=== PATIENT | male | born 1995 | race Caucasian/White ===

== ENCOUNTER 2021-06-12 20:04 | Emergency (ER) | payer OTHER, MEDICAID, SELFPAY ==
[2021-06-12 20:14] VITALS: BMI 22.2
--- NOTE | 2021-06-12 20:22 | CM.SWNOTE ---
Addendum entered by Julisa Holden 06/12/21 20:30: Patient presents without eye contact and possibly responding to internal stimuli. Patient's family reported to EMS that patient was outside in the rain with belief that he was being crucified. CRISTOPHER Pineda Original Note: ACCOUNT MANAGER SALES REPRESENTATIVE Assessment Note Patient presents to ED via EMS due to family's concern for patient's hallucinations. Patient is 25 y/o male with hx of Bipolar. Patient presents mute and not responding to questions. Patient presents with limited movements and limited ability to follow directions. Patient does not present as alert or oriented. Per EMS, patient endorsed I want to go back to [facility]. Patient's family endorsed that patient seems worse than before. It was reported that patient has not been taking his medication for the last 3 months. He is prescribed Risparidone and [place]. It is reported that patient had an inpatient hospital stay at [facility] in March 2021. It took patient 10 minutes to agree to sit on the bed. Patient presents with one leg and a prosthetic leg. ACCOUNT MANAGER SALES REPRESENTATIVE not able to conduct full assessment of patient due to his non responsiveness to all or any questions. It is the opinion of this ACCOUNT MANAGER SALES REPRESENTATIVE that patient is gravely disabled and not a good tyler voluntary inpatient patient. It is the opinion of this ACCOUNT MANAGER SALES REPRESENTATIVE that a DCR should be dispatched to assess patient for ROMULO placement. Plan: Patient to be medically assessed and when medically clear, ED team to dispatch DCR. CRISTOPHER Pineda
--- NOTE | 2021-06-12 20:28 | PC.NURSE ---
patient is currently sitting in a chair.
--- NOTE | 2021-06-12 20:46 | PC.NURSE ---
patient was taking on and off his shirt. seems annoyed and wanting to leave.
[2021-06-12 20:49] VITALS: BP 134/80; PULSE 76; RESP 16; O2SAT 99
[2021-06-12 21:01] LABS: Add Manual Diff / Slide Review NO; Basophils Absolute Auto 100 /uL (0-100); Basophils Percent Auto 0.6 % (0-2); Eosinophils Absolute Auto 100 /uL (0-450); Eosinophils Percent Auto 0.6 % (2-4); Hematocrit 42.4 % (41-53); Hemoglobin 14.3 g/dL (13.5-17.5); Lymphocytes Absolute Auto 2000 /uL (1100-4500); Lymphocytes Percent Auto 10.7 % (25-40); Mean Corpuscular HGB Conc 33.7 % (30-36); Mean Corpuscular Hemoglobin 30.5 PG (26-34); Mean Corpuscular Volume 90.5 fL (80-100); Monocytes Absolute Auto 1400 /uL (0-900); Monocytes Percent Auto 7.3 % (3-14); Neutrophils Absolute Auto 15400 /uL (1500-7000); Neutrophils Percent Auto 80.8 % (50-75); Platelet Count 227 X10^3/uL (150-400); Red Blood Cell Count 4.69 X10^6/uL (4.5-5.9); Red Cell Distribution Width 13.7 % (11.6-14.8); White Blood Cell Count 19.1 X10^3/uL (4.5-11.0)
[2021-06-12 21:13] LABS: Alanine Aminotransferase 35 IU/L (<50); Albumin 4.8 g/dL (3.5-5.0); Albumin Globulin Ratio 1.7 (1.0-2.8); Alkaline Phosphatase 106 U/L (38-126); Aspartate Aminotransferase 51 IU/L (17-59); BUN Creatinine Ratio 30.6 (6-22); Bilirubin Total 0.6 mg/dL (0.2-1.3); Blood Urea Nitrogen 34 mg/dL (9-20); Calcium 9.3 mg/dL (8.4-10.2); Carbon Dioxide 19 mmol/L (22-32); Chloride 102 mmol/L (98-107); Estimated Glomerular Filt Rate > 60.0 mL/min (>60); Ethanol (ETOH) < 10 mg/dL; Globulin 2.8 g/dL (1.7-4.1); Glucose 94 mg/dL (70-100); HEMOLYSIS < 15 (0-50); Potassium 3.5 mmol/L (3.4-5.1); Sodium 135 mmol/L (137-145); Total Protein 7.6 g/dL (6.3-8.2)
--- NOTE | 2021-06-12 21:47 | PC.NURSE ---
patient has fallen asleep. before bed he was offered food and water.
[2021-06-12] MEDS: risperiDONE 1 MG TABLET PO (22:28)
[2021-06-12 22:53] LABS: COVID19 -Nasal RAPID Negative (Negative)
--- NOTE | 2021-06-13 00:13 | ED.PSYCH ---
HPI - Psych <Rik Crenshaw DO - Last Filed: 06/16/21 03:55> General Chief Complaint: Psychiatric Symptoms Stated Complaint: Bipolar Psych Time Seen by Provider: 06/12/21 20:10 History of Present Illness HPI Narrative: 25-year-old patient with history of bipolar disorder presents by EMS for evaluation. There is very little known about this patient as he is not speaking with us at all. Family called EMS because the patient was apparently standing out in the rain suggesting he was about to be georgina if I had. There is report that he has bipolar but has not been taking his medication in some time. We have been unable to reach the family. He does not respond to questioning and does not make eye contact. He was apparently previously at [facility] and at 1 point had mention to the paramedics that he just wants to go there. There is no report of any fever or chills. There is no report from family or medics of any GI or urinary complaints. We have placed calls to family for more information but thus far they have been out of contact Related Data Allergies Allergy/AdvReac Type Severity Reaction Status Date / Time No Known Drug Allergies Allergy Verified 06/13/21 08:31 Review of Systems <Rik Crenshaw DO - Last Filed: 06/16/21 03:55> Review of Systems ROS Unobtainable: Unobtainable due to mental condition Exam <Rik Crenshaw DO - Last Filed: 06/16/21 03:55> Narrative Exam Narrative: GENERAL: [25] year old patient appears stated age. He does not appear to be in any physical pain or demonstrating respiratory distress. He will not speak but is standing, staring at the floor not making eye contact HEAD: Atraumatic. Normocephalic. EYES: Pupils equal round and reactive. Extraocular motions intact. No scleral icterus. No injection or drainage. ENT: Nose without bleeding, purulent drainage. Throat without erythema, tonsillar hypertrophy or exudate. Airway patent. NECK: Trachea midline. Non tender CARDIOVASCULAR: Regular rate and rhythm without murmurs, gallops, or rubs. RESPIRATORY: Clear to auscultation. Breath sounds equal bilaterally. No wheezes, rales, or rhonchi. GASTROINTESTINAL: Abdomen soft, non-tender, nondistended. EXTREMITIES: No edema or joint tenderness. BACK: Nontender without deformity or crepitance. No flank tenderness. NEURO: AOx3. SKIN: Bottom of right foot has an unroofed blister without surrounding erythema or any drainage. Initial Vital Signs Initial Vital Signs: Vital Signs Pulse Rate 76 06/12/21 20:49 Respiratory Rate 16 06/12/21 20:49 Blood Pressure 134/80 06/12/21 20:49 Pulse Oximetry 99 06/12/21 20:49 <Theo Castillo MD - Last Filed: 06/13/21 13:40> Initial Vital Signs Initial Vital Signs: Vital Signs Pulse Rate 76 06/12/21 20:49 Respiratory Rate 16 06/12/21 20:49 Blood Pressure 134/80 06/12/21 20:49 Pulse Oximetry 99 06/12/21 20:49 Course <Rik Crenshaw DO - Last Filed: 06/16/21 03:55> Course Course Narrative: Bipolar patient is clearly gravely disabled. There is no report of suicidal or homicidal ideation. He has been seen and evaluated by [facility] but is unwilling to have any sort of discussion. He is unable to demonstrate any good tyler discussion of voluntary hospitalization. Once medically cleared we will activate the DCR. Orders Ordered: Discontinued Medications Risperidone (Risperidone 1 Mg Tablet) 1 mg PO DAILY ONE Stop: 06/12/21 20:24 Last Admin: 06/12/21 21:42 Dose: Not Given Documented by: IZABELLA Risperidone (Risperidone 1 Mg Tablet) 1 mg PO DAILY [facility] Last Admin: 06/13/21 09:56 Dose: 1 mg Documented by: Admin: 06/12/21 22:28 Dose: 1 mg Documented by: HEATHER Vital Signs Vital signs: Vital Signs - 8 hr 06/12/21 20:49 Pulse Rate 76 Respiratory Rate 16 Blood Pressure 134/80 Pulse Oximetry 99 <Theo Castillo MD - Last Filed: 06/13/21 13:40> Course Additional Information: The patient's workup was done by Dr. Crenshaw, the night doctor. The intent was to have him evaluated for potential admission. He has been off medications for about 3 months, risperidone and lithium. He was at 1 1 observation by 1 of the nurses. He has improved. He is alert and oriented, the blood vague remember of last night. He denies intoxication. He is not using street drugs. Starting him back on the risperidone has helped significantly. He denies suicidal or homicidal ideation. He is discussing plans with his mother for getting home and getting back in treatment. After several hours of observation, he grew tired of his time in the ER. He left on his own will. His desire was to reestablished medications, and have a family member or friend pick him up. It is not clear that that was established.Theo MO 06/13/21 @13:19 Orders Ordered: Discontinued Medications Risperidone (Risperidone 1 Mg Tablet) 1 mg PO DAILY ONE Stop: 06/12/21 20:24 Last Admin: 06/12/21 21:42 Dose: Not Given Documented by: IZABELLA Risperidone (Risperidone 1 Mg Tablet) 1 mg PO DAILY [facility] Last Admin: 06/13/21 09:56 Dose: 1 mg Documented by: Admin: 06/12/21 22:28 Dose: 1 mg Documented by: HEATHER Vital Signs Vital signs: Vital Signs - 8 hr 06/12/21 20:49 Pulse Rate 76 Respiratory Rate 16 Blood Pressure 134/80 Pulse Oximetry 99 MDM - Psych <Rik Crenshaw DO - Last Filed: 06/16/21 03:55> Lab Data Result diagrams: 06/12/21 20:53 06/12/21 20:53 Labs: Lab Results 06/12/21 06/12/21 06/12/21 Range/Units : 20:53 20:53 WBC 19.1 H (4.5-11.0) X10^3/uL RBC 4.69 (4.5-5.9) X10^6/uL Hgb 14.3 (13.5-17.5) g/dL Hct 42.4 (41-53) % MCV 90.5 (80-100) fL MCH 30.5 (26-34) PG MCHC 33.7 (30-36) % RDW 13.7 (11.6-14.8) % Plt Count 227 (150-400) X10^3/uL Neut % (Auto) 80.8 H (50-75) % Lymph % (Auto) 10.7 L (25-40) % Gregory % (Auto) 7.3 (3-14) % Eos % (Auto) 0.6 L (2-4) % Baso % (Auto) 0.6 (0-2) % Neut # (Auto) 55174 H (7630-7659) /uL Lymph # (Auto) 2000 (9201-0392) /uL Gregory # (Auto) 1400 H (0-900) /uL Eos # (Auto) 100 (0-450) /uL Baso # (Auto) 100 (0-100) /uL Sodium 135 L (137-145) mmol/L Potassium 3.5 (3.4-5.1) mmol/L Chloride 102 (98-107) mmol/L Carbon Dioxide 19 L (22-32) mmol/L BUN 34 H (9-20) mg/dL Creatinine 1.11 (0.66-1.25) mg/dL Estimated GFR > 60.0 (>60) mL/min BUN/Creatinine Ratio 30.6 H (6-22) Glucose 94 (70-100) mg/dL Calcium 9.3 (8.4-10.2) mg/dL Total Bilirubin 0.6 (0.2-1.3) mg/dL AST 51 (17-59) IU/L ALT 35 (<50) IU/L Alkaline Phosphatase 106 (38-126) U/L Total Protein 7.6 (6.3-8.2) g/dL Albumin 4.8 (3.5-5.0) g/dL Globulin 2.8 (1.7-4.1) g/dL Albumin/Globulin Ratio 1.7 (1.0-2.8) Urine Color Urine Appearance Urine pH (4.5-8.0) Ur Specific [place] (1.000-1.035) Urine Protein (Negative) Urine Glucose (UA) (Negative) g/dL Urine Ketones (NEGATIVE) Urine Occult Blood (Negative) Urine Nitrate (Negative) Urine Bilirubin (NEGATIVE) Urine Urobilinogen (0.2) E.U./dL Ur Leukocyte Esterase (NEGATIVE) Urine RBC (0-5/HPF) Urine WBC (0-5/HPF) Ur Squamous Epith Cells (0-5/HPF) Amorphous Sediment Urine Bacteria (None) Hyaline Casts (None) Urine Mucus (Negative) Ur Culture Indicated? U Opiates 300ng/mL cut (Negative) Ur Oxycodone Screen (Negative) Urine Methadone Screen (Negative) Ur Barbiturates Screen (Negative) U Tricyclic Antidepress (Negative) Ur Phencyclidine Scrn (Negative) Ur Amphetamines Screen (Negative) U Methamphetamines Scrn (Negative) Ur MDMA Scrn (Ecstasy) (Negative) U Benzodiazepines Scrn (Negative) [place] < 0.2 L (0.6-1.2) mmol/L Urine Cocaine Screen (Negative) U Marijuana (THC) Screen (Negative) Ethyl Alcohol < 10 ( - 10) mg/dL SARS-CoV-2 (PCR) (Negative) 06/12/21 06/13/21 06/13/21 Range/Units 22:26 05:20 05:20 WBC (4.5-11.0) X10^3/uL RBC (4.5-5.9) X10^6/uL Hgb (13.5-17.5) g/dL Hct (41-53) % MCV (80-100) fL MCH (26-34) PG MCHC (30-36) % RDW (11.6-14.8) % Plt Count (150-400) X10^3/uL Neut % (Auto) (50-75) % Lymph % (Auto) (25-40) % Gregory % (Auto) (3-14) % Eos % (Auto) (2-4) % Baso % (Auto) (0-2) % Neut # (Auto) (2513-4222) /uL Lymph # (Auto) (2794-0603) /uL Gregory # (Auto) (0-900) /uL Eos # (Auto) (0-450) /uL Baso # (Auto) (0-100) /uL Sodium (137-145) mmol/L Potassium (3.4-5.1) mmol/L Chloride (98-107) mmol/L Carbon Dioxide (22-32) mmol/L BUN (9-20) mg/dL Creatinine (0.66-1.25) mg/dL Estimated GFR (>60) mL/min BUN/Creatinine Ratio (6-22) Glucose (70-100) mg/dL Calcium (8.4-10.2) mg/dL Total Bilirubin (0.2-1.3) mg/dL AST (17-59) IU/L ALT (<50) IU/L Alkaline Phosphatase (38-126) U/L Total Protein (6.3-8.2) g/dL Albumin (3.5-5.0) g/dL Globulin (1.7-4.1) g/dL Albumin/Globulin Ratio (1.0-2.8) Urine Color Yellow Urine Appearance Clear Urine pH 5.0 (4.5-8.0) Ur Specific [place] 1.025 (1.000-1.035) Urine Protein Negative (Negative) Urine Glucose (UA) Negative (Negative) g/dL Urine Ketones 1+ H (NEGATIVE) Urine Occult Blood Negative (Negative) Urine Nitrate Negative (Negative) Urine Bilirubin Negative (NEGATIVE) Urine Urobilinogen 0.2 (0.2) E.U./dL Ur Leukocyte Esterase Negative (NEGATIVE) Urine RBC 0-1/hpf (0-5/HPF) Urine WBC None seen (0-5/HPF) Ur Squamous Epith Cells 0-1 /hpf (0-5/HPF) Amorphous Sediment 1+ Urine Bacteria Occasional (0-1) (None) Hyaline Casts 0-1/lpf (None) Urine Mucus 1+ H (Negative) Ur Culture Indicated? Cult not indicated U Opiates 300ng/mL cut Negative (Negative) Ur Oxycodone Screen Negative (Negative) Urine Methadone Screen Negative (Negative) Ur Barbiturates Screen Negative (Negative) U Tricyclic Antidepress Negative (Negative) Ur Phencyclidine Scrn Negative (Negative) Ur Amphetamines Screen Negative (Negative) U Methamphetamines Scrn Negative (Negative) Ur MDMA Scrn (Ecstasy) Negative (Negative) U Benzodiazepines Scrn Negative (Negative) [place] (0.6-1.2) mmol/L Urine Cocaine Screen Negative (Negative) U Marijuana (THC) Screen Positive H (Negative) Ethyl Alcohol ( - 10) mg/dL SARS-CoV-2 (PCR) Negative (Negative) <Theo Castillo MD - Last Filed: 06/13/21 13:40> Lab Data Labs: Lab Results 06/12/21 06/12/21 06/12/21 Range/Units 09:21 20:53 20:53 WBC 19.1 H (4.5-11.0) X10^3/uL RBC 4.69 (4.5-5.9) X10^6/uL Hgb 14.3 (13.5-17.5) g/dL Hct 42.4 (41-53) % MCV 90.5 (80-100) fL MCH 30.5 (26-34) PG MCHC 33.7 (30-36) % RDW 13.7 (11.6-14.8) % Plt Count 227 (150-400) X10^3/uL Neut % (Auto) 80.8 H (50-75) % Lymph % (Auto) 10.7 L (25-40) % Gregory % (Auto) 7.3 (3-14) % Eos % (Auto) 0.6 L (2-4) % Baso % (Auto) 0.6 (0-2) % Neut # (Auto) 81626 H (3541-1935) /uL Lymph # (Auto) 2000 (2282-3939) /uL Gregory # (Auto) 1400 H (0-900) /uL Eos # (Auto) 100 (0-450) /uL Baso # (Auto) 100 (0-100) /uL Sodium 135 L (137-145) mmol/L Potassium 3.5 (3.4-5.1) mmol/L Chloride 102 (98-107) mmol/L Carbon Dioxide 19 L (22-32) mmol/L BUN 34 H (9-20) mg/dL Creatinine 1.11 (0.66-1.25) mg/dL Estimated GFR > 60.0 (>60) mL/min BUN/Creatinine Ratio 30.6 H (6-22) Glucose 94 (70-100) mg/dL Calcium 9.3 (8.4-10.2) mg/dL Total Bilirubin 0.6 (0.2-1.3) mg/dL AST 51 (17-59) IU/L ALT 35 (<50) IU/L Alkaline Phosphatase 106 (38-126) U/L Total Protein 7.6 (6.3-8.2) g/dL Albumin 4.8 (3.5-5.0) g/dL Globulin 2.8 (1.7-4.1) g/dL Albumin/Globulin Ratio 1.7 (1.0-2.8) Urine Color Urine Appearance Urine pH (4.5-8.0) Ur Specific [place] (1.000-1.035) Urine Protein (Negative) Urine Glucose (UA) (Negative) g/dL Urine Ketones (NEGATIVE) Urine Occult Blood (Negative) Urine Nitrate (Negative) Urine Bilirubin (NEGATIVE) Urine Urobilinogen (0.2) E.U./dL Ur Leukocyte Esterase (NEGATIVE) Urine RBC (0-5/HPF) Urine WBC (0-5/HPF) Ur Squamous Epith Cells (0-5/HPF) Amorphous Sediment Urine Bacteria (None) Hyaline Casts (None) Urine Mucus (Negative) Ur Culture Indicated? U Opiates 300ng/mL cut (Negative) Ur Oxycodone Screen (Negative) Urine Methadone Screen (Negative) Ur Barbiturates Screen (Negative) U Tricyclic Antidepress (Negative) Ur Phencyclidine Scrn (Negative) Ur Amphetamines Screen (Negative) U Methamphetamines Scrn (Negative) Ur MDMA Scrn (Ecstasy) (Negative) U Benzodiazepines Scrn (Negative) [place] < 0.2 L (0.6-1.2) mmol/L Urine Cocaine Screen (Negative) U Marijuana (THC) Screen (Negative) Ethyl Alcohol < 10 ( - 10) mg/dL SARS-CoV-2 (PCR) (Negative) 06/12/21 06/13/21 06/13/21 Range/Units 22:26 05:20 05:20 WBC (4.5-11.0) X10^3/uL RBC (4.5-5.9) X10^6/uL Hgb (13.5-17.5) g/dL Hct (41-53) % MCV (80-100) fL MCH (26-34) PG MCHC (30-36) % RDW (11.6-14.8) % Plt Count (150-400) X10^3/uL Neut % (Auto) (50-75) % Lymph % (Auto) (25-40) % Gregory % (Auto) (3-14) % Eos % (Auto) (2-4) % Baso % (Auto) (0-2) % Neut # (Auto) (4370-1120) /uL Lymph # (Auto) (0128-9102) /uL Gregory # (Auto) (0-900) /uL Eos # (Auto) (0-450) /uL Baso # (Auto) (0-100) /uL Sodium (137-145) mmol/L Potassium (3.4-5.1) mmol/L Chloride (98-107) mmol/L Carbon Dioxide (22-32) mmol/L BUN (9-20) mg/dL Creatinine (0.66-1.25) mg/dL Estimated GFR (>60) mL/min BUN/Creatinine Ratio (6-22) Glucose (70-100) mg/dL Calcium (8.4-10.2) mg/dL Total Bilirubin (0.2-1.3) mg/dL AST (17-59) IU/L ALT (<50) IU/L Alkaline Phosphatase (38-126) U/L Total Protein (6.3-8.2) g/dL Albumin (3.5-5.0) g/dL Globulin (1.7-4.1) g/dL Albumin/Globulin Ratio (1.0-2.8) Urine Color Yellow Urine Appearance Clear Urine pH 5.0 (4.5-8.0) Ur Specific [place] 1.025 (1.000-1.035) Urine Protein Negative (Negative) Urine Glucose (UA) Negative (Negative) g/dL Urine Ketones 1+ H (NEGATIVE) Urine Occult Blood Negative (Negative) Urine Nitrate Negative (Negative) Urine Bilirubin Negative (NEGATIVE) Urine Urobilinogen 0.2 (0.2) E.U./dL Ur Leukocyte Esterase Negative (NEGATIVE) Urine RBC 0-1/hpf (0-5/HPF) Urine WBC None seen (0-5/HPF) Ur Squamous Epith Cells 0-1 /hpf (0-5/HPF) Amorphous Sediment 1+ Urine Bacteria Occasional (0-1) (None) Hyaline Casts 0-1/lpf (None) Urine Mucus 1+ H (Negative) Ur Culture Indicated? Cult not indicated U Opiates 300ng/mL cut Negative (Negative) Ur Oxycodone Screen Negative (Negative) Urine Methadone Screen Negative (Negative) Ur Barbiturates Screen Negative (Negative) U Tricyclic Antidepress Negative (Negative) Ur Phencyclidine Scrn Negative (Negative) Ur Amphetamines Screen Negative (Negative) U Methamphetamines Scrn Negative (Negative) Ur MDMA Scrn (Ecstasy) Negative (Negative) U Benzodiazepines Scrn Negative (Negative) [place] (0.6-1.2) mmol/L Urine Cocaine Screen Negative (Negative) U Marijuana (THC) Screen Positive H (Negative) Ethyl Alcohol ( - 10) mg/dL SARS-CoV-2 (PCR) Negative (Negative) Discharge Plan Departure Patient Disposition: Home Clinical Impression: Acute psychosis, Bipolar disorder
--- NOTE | 2021-06-13 05:25 | PC.NURSE ---
Pt woke up I offered him a clean clothes he declined again, I brought him some juice and he used the urinal. He was answering my questions and was in a lot of pain when he stood on his foot.
[2021-06-13 05:34] LABS: UR Morphine/Opiate cutoff 300 Negative (Negative); Ur Creatinine Normal (Normal); Ur Specific Gravity Normal (Normal); Urine Amphetamines Negative (Negative); Urine Barbiturates Negative (Negative); Urine Benzodiazepines Negative (Negative); Urine Cocaine Negative (Negative); Urine MDMA Negative (Negative); Urine Methadone Negative (Negative); Urine Methamphetamines Negative (Negative); Urine Oxycodone Negative (Negative); Urine Phencyclidine Negative (Negative); Urine Tetrahydrocannabinol Positive (Negative); Urine Tricyclic Antidepressant Negative (Negative); Urine pH Normal (Normal)
[2021-06-13 05:35] LABS: Appearance Urine UA CLEAR; Bilirubin Urine UA NEGATIVE (NEGATIVE); Color Urine UA YELLOW; Glucose Urine UA NEGATIVE (Negative); Ketones Urine UA 1+ (NEGATIVE); Leukocyte Esterase Urine UA NEGATIVE (NEGATIVE); Nitrite Urine UA NEGATIVE (Negative); Occult Blood Urine UA NEGATIVE (Negative); Protein Urine UA NEGATIVE (Negative); Specific Gravity Urine UA 1.025 (1.000-1.035); Urobilinogen Urine UA 0.2 E.U./dL (0.2)
[2021-06-13 05:37] LABS: Amorphous Sediment Urine 1+; Bacteria Urine Occasional (0-1); Culture Indicated Urine Cult Not Indicated; Hyaline Casts Urine 0-1/LPF; Mucus Urine 1+ (Negative); RBC Urine 0-1/HPF (0-5/HPF); Squamous Epithelial Cell Urine 0-1 /HPF (0-5/HPF); WBC Urine None Seen (0-5/HPF)
--- NOTE | 2021-06-13 06:19 | PC.NURSE ---
He will talk to me now but it takes him several minutes to respond to any question I ask.His movements are slow but he seems to understand me and has difficulty expressing himself.
--- NOTE | 2021-06-13 08:13 | PC.NURSE ---
Pt gotten up to bathroom and in the shower. Pt cleaned the blister on the bottom of his R foot well.
--- NOTE | 2021-06-13 08:14 | PC.NURSE ---
Pt ate 100% of breakfast.
--- NOTE | 2021-06-13 08:15 | PC.NURSE ---
Pt sitting in WC in the door way people watching, pt is calm and cooperative and when asked to keep the WC in the room he easily agrees
--- NOTE | 2021-06-13 08:31 | PC.NURSE ---
Spoke with pt. Pt is slow to respond and occasionally asks for the question to be repeated but is A&OX4 and giving appropriate answers. Pt states that he has a hx of bipolar and takes risperidone and lithium (recently reduced to 400mg). Pt reports that he normally lives in [place] with his mom but is up here with his brother who lives and works here in [place]. Pt is aware of why he was brought in last night and states that he would be willing to do o/p therapy to get back on track with his meds.
--- NOTE | 2021-06-13 09:07 | PC.NURSE ---
Pt was still hungry and asked for more food. Additional breakfast tray was provided and he ate 100%.
[2021-06-13 09:32] LABS: Lithium < 0.2 mmol/L (0.6-1.2)
[2021-06-13] MEDS: risperiDONE 1 MG TABLET PO (09:56)
--- NOTE | 2021-06-13 10:27 | PC.NURSE ---
Attempting to get prescriber info for pt's last meds to contact them to insure proper f/u
--- NOTE | 2021-06-13 10:34 | PC.NURSE ---
Pt sleeping. Resp even and unlabored
--- NOTE | 2021-06-13 11:20 | PC.NURSE ---
PHONE NUMBERS MomMakenna Paul: [phone] Sister, Kezia Paul: [phone]
--- NOTE | 2021-06-13 12:47 | CM.MNRNOTE ---
Several unsuccessful phone calls made to o/p psych resources and none could prescribe at this time. Pt does not have a working cell number and his sister does not wish to pick him up. Pt is frustrated and wanting to leave. Pt is still A&Ox4, speaking clearly and coherently. No SI/HI. MD states that pt is able to leave under his own volition. Pt educated and re-educated on the importance of getting a follow up appt with a PCP or his prescribing MD. Pt nods in understanding.
--- NOTE | 2021-06-13 12:51 | PC.NURSE ---
Pt getting anxious and frustrated about staying while staff attempts to set up o/p prescribing and f/u. Also attempting multiple times to contact pt's sister in town to pick him up per Dr. Castillo
--- NOTE | 2021-06-13 12:53 | PC.NURSE ---
Dr. Castillo said that pt is able to leave. Pt given all belongings that he was brought with. Getting dressed now
--- NOTE | 2021-06-13 13:00 | PC.NURSE ---
RN called hotel voucher program and awaiting a call back per [employer] suggestion. Will get pt assisted information as well. Have permission to give pt taxi voucher if needed.
--- NOTE | 2021-06-13 13:30 | PC.NURSE ---
Pt getting increasingly frustrated about waiting and that his mom and sister both do not want to come pick him up. Pt urged to be patient while we hear back from the hotel voucher program. Pt refused, put on his prostetic leg, gathered both bags of belongings and took a WC out to the lobby. Ramon Min RN witness to pt leaving. informed.
== END 2021-06-13 13:32 | disposition home or self-care (01) ==
PROVIDERS: Emergency Medicine; Emergency Provider Emergency Medicine
DX: F23 Brief psychotic disorder (principal); F31.9 Bipolar disorder, unspecified; Z20.822 Contact with and (suspected) exposure to COVID-19
CPT/HCPCS: 36415; 80053; 80178; 80305; 80320; 81001; 85025; 87635; 99284; C9803